=== PATIENT | male | born 1975 | race Caucasian/White ===

== ENCOUNTER 2024-01-05 23:00 | Emergency (ER) | payer OTHER, MEDICAID ==
[~2024-01-05] VITALS: Ht 182.9 cm; Wt 113.4 kg
[2024-01-05] MEDS ORDERED: VALSARTAN-HCTZ1 EA10 PO (23:09)
[2024-01-05] MEDS ORDERED: LORazepam 1 MG Tab PO ONE (23:10)
[2024-01-05 23:25] LABS: BASOPHILS ABSOLUTE AUTO 0.06 K/mm3 (0.00-0.23); BASOPHILS PERCENT AUTO 1 % (0-2); EOSINOPHILS ABSOLUTE AUTO 0.17 K/mm3 (0.00-0.68); EOSINOPHILS PERCENT AUTO 2 % (0-6); Hematocrit 42.7 % (37.0-53.0); Hemoglobin 14.2 g/dL (13.5-17.5); IMMATURE GRAN ABSOLUTE AUTO 0.03 K/mm3 (0.00-0.10); IMMATURE GRAN PERCENT AUTO 0 % (0-1); LYMPHOCYTES ABSOLUTE AUTO 1.87 K/mm3 (0.84-5.20); LYMPHOCYTES PERCENT AUTO 26 % (21-46); MONOCYTES ABSOLUTE AUTO 0.56 K/mm3 (0.16-1.47); MONOCYTES PERCENT AUTO 8 % (4-13); Mean Corpuscular HGB 30.7 pg (26.0-34.0); Mean Corpuscular HGB Conc 33.3 g/dL (31.5-36.5); Mean Corpuscular Volume 92 fL (80-100); Mean Platelet Volume 8.9 fL (9.1-12.4); NEUTROPHILS ABSOLUTE AUTO 4.45 K/mm3 (1.96-9.15); NEUTROPHILS PERCENT AUTO 62 % (41-73); Platelet Count 216 K/mm3 (150-400); RDW Standard Deviation 46.8 fL (35.1-46.3); Red Blood Cell Count 4.62 M/mm3 (4.30-5.90); White Blood Cell Count 7.14 K/mm3 (4.00-11.30)
[2024-01-05 23:44] LABS: Albumin, Blood 3.7 g/dL (3.4-5.0); Bilirubin, Total 0.3 mg/dL (0.1-1.0); Bun/Creatinine Ratio 13.4 (12.0-20.0); Creatinine, Blood 0.75 mg/dL (0.60-1.20); Globulin, Blood 3.7 g/dL (2.2-4.0); Potassium, Blood 4.2 mmol/L (3.5-5.5); Total Protein, Blood 7.4 g/dL (6.4-8.2)
== END 2024-01-06 00:14 | disposition home or self-care (01) ==
LOC: ER 23:00
PROVIDERS: Emergency Medicine
DX: I10 Essential (primary) hypertension (principal); Z79.899 Other long term (current) drug therapy
CPT/HCPCS: 71045; 80053; 84484; 85025; 93005; 93010; 99284-25; A9270

== ENCOUNTER 2025-02-20 11:54 | Inpatient (IN) | payer OTHER ==
[~2025-02-20] VITALS: Ht 180.3 cm; Wt 105.4 kg
[~2025-02-20 11:54] MED LIST: CIPR500 PO; LOSARTAN-HCTZ1 EACH PO; METR500 PO; VALSARTAN-HCTZ1 EA10 PO; VSL#3 112.5B1 EACH PO
[2025-02-20 13:33] LABS: BASOPHILS ABSOLUTE AUTO 0.07 K/mm3 (0.00-0.23); BASOPHILS PERCENT AUTO 1 % (0-2); EOSINOPHILS ABSOLUTE AUTO 0.08 K/mm3 (0.00-0.68); EOSINOPHILS PERCENT AUTO 1 % (0-6); Hematocrit 42.7 % (37.0-53.0); Hemoglobin 13.9 g/dL (13.5-17.5); IMMATURE GRAN ABSOLUTE AUTO 0.07 K/mm3 (0.00-0.10); IMMATURE GRAN PERCENT AUTO 1 % (0-1); LYMPHOCYTES ABSOLUTE AUTO 0.88 K/mm3 (0.84-5.20); LYMPHOCYTES PERCENT AUTO 8 % (21-46); MONOCYTES ABSOLUTE AUTO 0.74 K/mm3 (0.16-1.47); MONOCYTES PERCENT AUTO 7 % (4-13); Mean Corpuscular HGB Conc 32.6 g/dL (31.5-36.5); Mean Corpuscular Volume 93 fL (80-100); NEUTROPHILS ABSOLUTE AUTO 9.11 K/mm3 (1.96-9.15); NEUTROPHILS PERCENT AUTO 83 % (41-73); NRBC ABSOLUTE 0.00 K/mm3 (0.00-0.02); NRBC Auto 0.0 /100 WBC (0.0-0.2); Platelet Count 242 K/mm3 (150-400); RDW Coefficient Variation 14.6 % (11.7-14.2); RDW Standard Deviation 49.0 fL (35.1-46.3)
[2025-02-20 13:55] LABS: Alanine Aminotransfer (ALT/SGP 24.0 U/L (12-78); Albumin, Blood 3.4 g/dL (3.4-5.0); Albumin/Globulin Ratio 0.9 (0.8-1.8); Anion Gap 5.0 mmol/L (3-11); Aspartate Aminotrans (AST/SGOT 16.0 U/L (12-37); Bilirubin, Total 0.4 mg/dL (0.1-1.0); Blood Urea Nitrogen 12.0 mg/dL (8-24); CO2, Blood 31.0 mmol/L (21-32); Calcium, Blood 9.2 mg/dL (8.5-10.1); Chloride, Blood 105.0 mmol/L (98-108); Creatinine, Blood 0.71 mg/dL (0.60-1.20); Globulin, Blood 3.7 g/dL (2.2-4.0); Glucose, Blood 110.0 mg/dL (70-99); Potassium, Blood 3.8 mmol/L (3.5-5.5); Sodium, Blood 137.0 mmol/L (136-145); Total Protein, Blood 7.1 g/dL (6.4-8.2)
[2025-02-20 15:13] LABS: Source, Urine Clean Catch
[2025-02-20 15:19] LABS: Bilirubin, Urine Neg (Neg); Color, Urine Yellow (P-Yellow); Glucose Qualitative, Urine Neg (Neg); Ketones, Urine Neg (Neg); Leukocyte Esterase, Urine Neg (Neg); Protein, Urine Neg (Neg); Specific Gravity, Urine 1.025 (1.003-1.022); Urobilinogen, Urine NORM (Normal)
[2025-02-20] MEDS ORDERED: NS 1,000 ML IV SCH (15:45)
[2025-02-20] MEDS ORDERED: FentaNYL Citrate 50 MCG/ML 2 ML Injection IV ONE ×2 (15:45→17:25)
[2025-02-20 15:53] LABS: White Blood Cells, Urine 0-2 /hpf (0-5)
[2025-02-20] MEDS ORDERED: MetroNIDAZOLE 500MG/NS 100 ml 100 ML IV ONE (17:35)
[2025-02-20] MEDS ORDERED: CefTRIAXone Sodium 1,000 MG in NS 100 ML IV ONE (17:35)
[2025-02-20] MEDS ORDERED: FentaNYL Citrate 50 MCG/ML 2 ML Injection IV PRN (18:10)
[2025-02-20] MEDS ORDERED: HydrALAZINE HCl 20 MG / ML 1ML Vial IV PRN (18:15)
[2025-02-20] MEDS ORDERED: Metoclopramide HCl 5MG / ML 2ML Vial IV PRN (18:15)
[2025-02-20] MEDS ORDERED: Ondansetron HCl 2 MG / ML 2ML Vial IV PRN (18:15)
[2025-02-20] MEDS ORDERED: Piperacillin/Tazobactam Sod 3.375 GM in NS 100 ML IV ONE (18:20)
[2025-02-20] MEDS ORDERED: Lactobacil 2-S.Thermo-Bifido 1 1 Cap PO SCH (21:00)
[2025-02-20 21:02] VITALS: BP 134/84
[2025-02-21 04:27] LABS: BASOPHILS ABSOLUTE AUTO 0.02 K/mm3 (0.00-0.23); BASOPHILS PERCENT AUTO 0 % (0-2); EOSINOPHILS ABSOLUTE AUTO 0.04 K/mm3 (0.00-0.68); EOSINOPHILS PERCENT AUTO 1 % (0-6); Hematocrit 37.7 % (37.0-53.0); Hemoglobin 12.4 g/dL (13.5-17.5); IMMATURE GRAN ABSOLUTE AUTO 0.02 K/mm3 (0.00-0.10); IMMATURE GRAN PERCENT AUTO 0 % (0-1); LYMPHOCYTES ABSOLUTE AUTO 0.80 K/mm3 (0.84-5.20); LYMPHOCYTES PERCENT AUTO 13 % (21-46); MONOCYTES ABSOLUTE AUTO 0.58 K/mm3 (0.16-1.47); MONOCYTES PERCENT AUTO 9 % (4-13); Mean Corpuscular HGB Conc 32.9 g/dL (31.5-36.5); Mean Corpuscular Volume 90 fL (80-100); NEUTROPHILS ABSOLUTE AUTO 4.84 K/mm3 (1.96-9.15); NEUTROPHILS PERCENT AUTO 77 % (41-73); NRBC ABSOLUTE 0.00 K/mm3 (0.00-0.02); NRBC Auto 0.0 /100 WBC (0.0-0.2); Platelet Count 176 K/mm3 (150-400); RDW Coefficient Variation 14.7 % (11.7-14.2); RDW Standard Deviation 48.9 fL (35.1-46.3)
[2025-02-21 04:45] LABS: Magnesium, Blood 1.8 mg/dL (1.6-2.4)
[2025-02-21 04:46] LABS: Alanine Aminotransfer (ALT/SGP 19.0 U/L (12-78); Albumin, Blood 2.9 g/dL (3.4-5.0); Albumin/Globulin Ratio 1.0 (0.8-1.8); Anion Gap 8.0 mmol/L (3-11); Aspartate Aminotrans (AST/SGOT 11.0 U/L (12-37); Bilirubin, Total 0.5 mg/dL (0.1-1.0); Blood Urea Nitrogen 9.0 mg/dL (8-24); CO2, Blood 28.0 mmol/L (21-32); Calcium, Blood 7.9 mg/dL (8.5-10.1); Chloride, Blood 105.0 mmol/L (98-108); Creatinine, Blood 0.69 mg/dL (0.60-1.20); Globulin, Blood 3.0 g/dL (2.2-4.0); Glucose, Blood 98.0 mg/dL (70-99); Potassium, Blood 3.6 mmol/L (3.5-5.5); Sodium, Blood 137.0 mmol/L (136-145); Total Protein, Blood 5.9 g/dL (6.4-8.2)
[2025-02-21 05:19] LABS: Prothrombin Time Results 12.0 Sec (9.7-11.5)
[2025-02-21 05:27] VITALS: BP 123/76
[2025-02-21] MEDS ORDERED: Piperacillin/Tazobactam Sod 3.375 GM in NS 100 ML IV SCH (06:00)
--- NOTE | 2025-02-21 06:15 | NUR ---
SHIFT SUMMARY PT ADMITTED ON 02/20/25 FOR ACUTE DIVERTICULITIS WITH PERFORATION. PAIN MANAGED WELL PER EMAR. A&O X4. PT FEBRILE ON ARRIVAL TO UNIT AND MEDICATED PER EMAR. PT C/O DIZZINESS. BED ALARM ON, PT EDUCATED REGARDING FALL RISK AND TO USE THE CALL LIGHT FOR ASSISTANCE. CALL LIGHT WITHIN REACH. CARE PLAN ONGOING.
[2025-02-21 08:25] VITALS: BP 118/84
[2025-02-21] MEDS ORDERED: Enoxaparin 40 MG/0.4 ML SYR SC SCH (09:00)
--- NOTE | 2025-02-21 09:08 | NUR ---
DR CLEMENS IN TO SEE PT.
--- NOTE | 2025-02-21 14:13 | NUR ---
TURNED OVER CARE TO KEELEY Min RN.
[2025-02-21 15:32] VITALS: BP 126/91
[2025-02-21 19:07] VITALS: BP 130/82
--- NOTE | 2025-02-21 19:26 | NUR ---
SHIFT SUMMARY HAD INCREASE IN PAIN AFTER HAVING CLEAR LQ LUNCH. HAS ONLY DONE SIPS SINCE. IVF & ABX SCHEDULED. IND IN ROOM.
--- NOTE | 2025-02-22 05:27 | NUR ---
NOC SUMMARY- PT PAIN MANAGED WELL. PT HAS BEEN RESTING COMFORTABLY. PT HAS BEEN VOIDING WELL. TOLERATING PO INTAKE. NO NEW ISSUES NOTED. CALL LIGHT IN REACH.
[2025-02-22 05:29] VITALS: BP 130/97
[2025-02-22 07:27] VITALS: BP 141/94
[2025-02-22] MEDS ORDERED: D5W-1/2NS KCl 20mEq 1,000 ML IV SCH (08:05)
[2025-02-22 14:09] VITALS: BP 102/64
--- NOTE | 2025-02-22 17:37 | NUR ---
SHIFT SUMMARY PT IS A/OX4. IND IN ROOM, VSS. PT IS ABLE TO MAKE NEEDS KNOWN, TOLERATING PO INTAKE. PT STATES HE IS PASSING GAS. NO ACUTE CHANGES. PT DENIES PAIN, MANAGED PER EMAR. NO N/V. CALL LIGHT IN REACH. BED IN LOWEST POSITION.
[2025-02-22] MEDS ORDERED: NS 250 ML IV PRN (18:10)
[2025-02-22 20:45] VITALS: BP 147/104
--- NOTE | 2025-02-22 21:17 | NUR ---
TRANSFER PT TRANSFER TO 340 APPROX 2114. GAVE REPORT TO BRITTA HORTON @2109 TO ASSUME CARE OF PT.
[2025-02-22 21:26] VITALS: BP 137/85
--- NOTE | 2025-02-22 21:50 | NUR ---
SURGICAL TRANSFER: REPORT RECIEVED FROM JAVIER Pak PT ARRIVED ON UNIT VIA WHEEL CHAIR AND TRANSFERED TO BED IND. PT HAS D5 1/2 NS WITH 20 MEQS POSTASSIUM CHOLORIDE RUNNING AT 125 MLS/HR AT BEDSIDE. VS TAKEN AND WEIGHT TAKEN. PT IS NON SURGICAL AND ON A CLEAR LIQUID DIET.
--- NOTE | 2025-02-23 03:49 | NUR ---
SHIFT SUMMARY: PT WAS A SURGICAL FLOOR TRANSFER. POTASSIUM CHOLORIDE WITH D5 AND HALF NS RUNNING AT BEDSIDE AT 125 MLS/HR. PT IS IND IN ROOM AND IS AOX4. PT ABLE TO MAKE NEEDS KNOWN.
[2025-02-23 05:12] VITALS: BP 112/75
[2025-02-23 05:55] LABS: Hematocrit 34.7 % (37.0-53.0); Hemoglobin 11.3 g/dL (13.5-17.5); Mean Corpuscular HGB Conc 32.6 g/dL (31.5-36.5); Mean Corpuscular Volume 90 fL (80-100); NRBC ABSOLUTE 0.00 K/mm3 (0.00-0.02); NRBC Auto 0.0 /100 WBC (0.0-0.2); Platelet Count 181 K/mm3 (150-400); RDW Coefficient Variation 14.2 % (11.7-14.2); RDW Standard Deviation 47.2 fL (35.1-46.3)
[2025-02-23 06:17] LABS: Anion Gap 5.0 mmol/L (3-11); Blood Urea Nitrogen 3.0 mg/dL (8-24); CO2, Blood 29.0 mmol/L (21-32); Calcium, Blood 8.0 mg/dL (8.5-10.1); Chloride, Blood 107.0 mmol/L (98-108); Creatinine, Blood 0.68 mg/dL (0.60-1.20); Glucose, Blood 141.0 mg/dL (70-99); Potassium, Blood 3.4 mmol/L (3.5-5.5); Sodium, Blood 138.0 mmol/L (136-145)
[2025-02-23 07:29] VITALS: BP 106/88
--- NOTE | 2025-02-23 13:22 | NUR ---
RN NOTE MR BRAVO DESCRIBES MILD LUQ ABDOMINAL PAIN, HAS DECLINED NEEDING MEDICATIONS, HEAT PAD IS HELPING. HE WAS ADVANCED TO FULL LIQUID DIET FOR LUNCH AND ATE 100% WITHOUT ANY INCREASE IN PAIN OR NAUSEA. GIVEN SARAH HOSE TO PUT ON. AMBULATING INDEPENDENTLY.
[2025-02-23 15:41] VITALS: BP 122/89
--- NOTE | 2025-02-23 17:46 | NUR ---
SHIFT SUMMARY SEE PRIOR NOTE. MR BRAVO HAS DONE WELL TODAY. MINIMAL LUQ ABDOMINAL PAIN, NO NAUSEA. TOLERATED FULL LIQUID LUNCH WELL. AMBULATED WITH HIS AROUND THE HALLS WITH STEADY GAIT. IVF/IV ABX CONTINUE. BED LOW, CALL LIGHT IN REACH.
[2025-02-23 19:52] VITALS: BP 126/86
--- NOTE | 2025-02-24 03:33 | NUR ---
SHIFT SUMMARY: PT IS IND IN ROOM AND AOX4. PT IS ABLE TO MAKE NEEDS KNOWN. MEDICATED PER EMAR. PLAN IS FOR PT TO DISCHARGE HOME. POTASSIUM RUUNING AT BEDSIDE AT 125 MLS/HR. NO ACUTE CHNAGES THIS SHIFT
[2025-02-24 05:00] VITALS: BP 131/91
[2025-02-24 07:16] VITALS: BP 133/93
[2025-02-24 09:51] LABS: Albumin, Blood 3.0 g/dL (3.4-5.0); Anion Gap 6 mmol/L (3-11); Blood Urea Nitrogen 2 mg/dL (8-24); CO2, Blood 28 mmol/L (21-32); Calcium, Blood 8.2 mg/dL (8.5-10.1); Chloride, Blood 107 mmol/L (98-108); Creatinine, Blood 0.64 mg/dL (0.60-1.20); Glucose, Blood 171 mg/dL (70-99); Phosphorus, Blood 3.3 mg/dL (2.5-4.9); Potassium, Blood 4.0 mmol/L (3.5-5.5); Sodium, Blood 137 mmol/L (136-145)
[2025-02-24] MEDS ORDERED: DOCU100 PO (12:32)
[2025-02-24] MEDS ORDERED: AMOCLA875 PO (12:32)
[2025-02-24] MEDS ORDERED: HYDR1TAB94 PO (12:34)
== END 2025-02-24 13:32 | disposition home or self-care (01) | DRG 392 ==
LOC: ER 11:54 → MEDS 18:10 → SURS 18:10 → MEDS 02-22 21:30 → ENPENDDIS 02-24 12:19 → MEDS 02-24 13:32
PROVIDERS: Internal Medicine; Nurse Practitioner Acute Care; Student in an Organized Health Care Education/Training Program; ADMIT Student in an Organized Health Care Education/Training Program
DX: K57.20 Diverticulitis of large intestine with perforation and abscess without bleeding (principal); I10 Essential (primary) hypertension; M54.9 Dorsalgia, unspecified; G89.29 Other chronic pain; E87.6 Hypokalemia; R14.3 Flatulence; F17.210 Nicotine dependence, cigarettes, uncomplicated; F12.90 Cannabis use, unspecified, uncomplicated; Z90.89 Acquired absence of other organs; Z79.899 Other long term (current) drug therapy
CPT/HCPCS: 36415; 74177; 80048; 80053; 80069; 81001; 83690; 83735; 83880; 85025; 85027; 85610; 87040; 87086; 93005; 93010; 96374-59; 99285-25; A9270; J0696; J1650; J2543; J2765; J3010; J7030; J7050; J7120; Q9967

== ENCOUNTER 2025-03-02 00:48 | Inpatient (IN) | payer OTHER ==
[~2025-03-02] VITALS: Ht 180.3 cm; Wt 104.3 kg
[~2025-03-02 00:48] MED LIST changes: +AMOCLA875 PO; +DOCU100 PO; +HYDR1TAB94 PO
[2025-03-02] MEDS ORDERED: FentaNYL Citrate 50 MCG/ML 2 ML Injection IV PRN (03:25)
[2025-03-02 03:38] LABS: BASOPHILS ABSOLUTE AUTO 0.03 K/mm3 (0.00-0.23); BASOPHILS PERCENT AUTO 0 % (0-2); EOSINOPHILS ABSOLUTE AUTO 0.08 K/mm3 (0.00-0.68); EOSINOPHILS PERCENT AUTO 1 % (0-6); Hematocrit 39.8 % (37.0-53.0); Hemoglobin 13.0 g/dL (13.5-17.5); IMMATURE GRAN ABSOLUTE AUTO 0.05 K/mm3 (0.00-0.10); IMMATURE GRAN PERCENT AUTO 1 % (0-1); LYMPHOCYTES ABSOLUTE AUTO 1.19 K/mm3 (0.84-5.20); LYMPHOCYTES PERCENT AUTO 12 % (21-46); MONOCYTES ABSOLUTE AUTO 0.49 K/mm3 (0.16-1.47); MONOCYTES PERCENT AUTO 5 % (4-13); Mean Corpuscular HGB Conc 32.7 g/dL (31.5-36.5); Mean Corpuscular Volume 90 fL (80-100); NEUTROPHILS ABSOLUTE AUTO 8.29 K/mm3 (1.96-9.15); NEUTROPHILS PERCENT AUTO 82 % (41-73); NRBC ABSOLUTE 0.00 K/mm3 (0.00-0.02); NRBC Auto 0.0 /100 WBC (0.0-0.2); Platelet Count 255 K/mm3 (150-400); RDW Coefficient Variation 14.2 % (11.7-14.2); RDW Standard Deviation 46.5 fL (35.1-46.3)
[2025-03-02 03:57] LABS: Alanine Aminotransfer (ALT/SGP 19.0 U/L (12-78); Albumin, Blood 3.2 g/dL (3.4-5.0); Albumin/Globulin Ratio 1.0 (0.8-1.8); Anion Gap 9.0 mmol/L (3-11); Aspartate Aminotrans (AST/SGOT 10.0 U/L (12-37); Bilirubin, Total 0.4 mg/dL (0.1-1.0); Blood Urea Nitrogen 12.0 mg/dL (8-24); CO2, Blood 29.0 mmol/L (21-32); Calcium, Blood 8.4 mg/dL (8.5-10.1); Chloride, Blood 102.0 mmol/L (98-108); Creatinine, Blood 0.71 mg/dL (0.60-1.20); Globulin, Blood 3.2 g/dL (2.2-4.0); Glucose, Blood 114.0 mg/dL (70-99); Potassium, Blood 3.6 mmol/L (3.5-5.5); Sodium, Blood 136.0 mmol/L (136-145); Total Protein, Blood 6.4 g/dL (6.4-8.2)
[2025-03-02] MEDS ORDERED: Ampicillin Sod/Sulbactam Sod 3 GM in NS 100 ML IV ONE (05:40)
[2025-03-02] MEDS ORDERED: NS 1,000 ML IV SCH ×3 (05:40→11:30)
[2025-03-02] MEDS ORDERED: Ondansetron HCl 2 MG / ML 2ML Vial IV PRN (05:45)
[2025-03-02] MEDS ORDERED: HYDROmorphone HCl/Pf 1MG SYR IV PRN (05:45)
[2025-03-02] MEDS ORDERED: FLU VACC TS2025-26(6MOS UP)/PF 45 MCG/0.5 ML SYRINGE IM ONE (05:50)
[2025-03-02] MEDS ORDERED: Losartan/HCTZ 50-12.5 TAB PO SCH ×2 (09:00)
[2025-03-02] MEDS ORDERED: Lactobacil 2-S.Thermo-Bifido 1 1 Cap PO SCH (09:00)
[2025-03-02 11:11] VITALS: BP 124/92
[2025-03-02] MEDS ORDERED: Piperacillin/Tazobactam Sod 3.375 GM in NS 100 ML IV SCH (12:00)
[2025-03-02 14:32] VITALS: BP 120/85
--- NOTE | 2025-03-02 17:19 | NUR ---
DISCHARGE PATIENT IS AOX4, IND IN ROOM. TOLERATING SIPS OF CL. MEDICATED FOR PAIN. ON IVF AND ABX Q6. PASSING FLATUS AND VOIDING WELL. ABLE TO MAKE NEEDS KNOWN. PLAN FOR IVF AND ABX. CALL LIGHT IN REACH.
[2025-03-02 17:38] LABS: Source, Urine Voided
[2025-03-02 17:54] LABS: Bilirubin, Urine Neg (Neg); Color, Urine Yellow (P-Yellow); Glucose Qualitative, Urine Neg (Neg); Ketones, Urine Neg (Neg); Leukocyte Esterase, Urine Neg (Neg); Protein, Urine 1+ (Neg); Specific Gravity, Urine 1.025 (1.003-1.022); Urobilinogen, Urine NORM (Normal)
[2025-03-02 18:10] LABS: White Blood Cells, Urine 0-2 /hpf (0-5)
[2025-03-02 20:06] VITALS: BP 126/87
[2025-03-03 05:31] VITALS: BP 121/78
--- NOTE | 2025-03-03 05:32 | NUR ---
SHIFT SUMMARY DIMITRIS WAS ALERT AND FULLY ORIENTED ON ASSESSMENT. PT PAIN WELL MANAGED. PT DENIES N/V, CHEST PAIN, OR SOB. PT IND IN ROOM. NO ACUTE EVENTS OR NOTED CHANGES TO CONDITION TONGIHT. PT SLEPT WELL T/O SHIFT.
[2025-03-03 07:31] VITALS: BP 103/74
[2025-03-03 15:47] VITALS: BP 134/95
--- NOTE | 2025-03-03 18:07 | NUR ---
SHIFT SUMMARY PATIENT IS AOX4, CONTINUES IV ABX, IVF. PATIENT IS TOELRATING FULL LIQUIDS. PASSING FLATUS, SMALL BM. MEDICATED FOR PAIN. WALKING HALLS, AND SHOWER TODAY. VSS, CALL LIGHT IN REACH.
[2025-03-03 19:47] VITALS: BP 127/94
[2025-03-04 04:29] VITALS: BP 129/83
--- NOTE | 2025-03-04 04:44 | NUR ---
SHIFT SUMMARY DIMITRIS WAS ALERT AND FULLY ORIENTED ON ASSESSMENT. PAIN WELL MANAGED. PT IND. REPORTING BMS. NO ACUTE EVENTS TONIGHT, NO CHANGES TO PT CONDITION. PT DENIES SOB OR CHEST PAIN, NO NAUSEA. PT RESTING.
[2025-03-04 04:59] LABS: BASOPHILS ABSOLUTE AUTO 0.04 K/mm3 (0.00-0.23); BASOPHILS PERCENT AUTO 1 % (0-2); EOSINOPHILS ABSOLUTE AUTO 0.17 K/mm3 (0.00-0.68); EOSINOPHILS PERCENT AUTO 3 % (0-6); Hematocrit 34.3 % (37.0-53.0); Hemoglobin 11.3 g/dL (13.5-17.5); IMMATURE GRAN ABSOLUTE AUTO 0.02 K/mm3 (0.00-0.10); IMMATURE GRAN PERCENT AUTO 0 % (0-1); LYMPHOCYTES ABSOLUTE AUTO 1.46 K/mm3 (0.84-5.20); LYMPHOCYTES PERCENT AUTO 25 % (21-46); MONOCYTES ABSOLUTE AUTO 0.54 K/mm3 (0.16-1.47); MONOCYTES PERCENT AUTO 9 % (4-13); Mean Corpuscular HGB Conc 32.9 g/dL (31.5-36.5); Mean Corpuscular Volume 89 fL (80-100); NEUTROPHILS ABSOLUTE AUTO 3.52 K/mm3 (1.96-9.15); NEUTROPHILS PERCENT AUTO 61 % (41-73); NRBC ABSOLUTE 0.00 K/mm3 (0.00-0.02); NRBC Auto 0.0 /100 WBC (0.0-0.2); Platelet Count 188 K/mm3 (150-400); RDW Coefficient Variation 13.9 % (11.7-14.2); RDW Standard Deviation 45.2 fL (35.1-46.3)
[2025-03-04 05:31] LABS: Alanine Aminotransfer (ALT/SGP 15.0 U/L (12-78); Albumin, Blood 2.6 g/dL (3.4-5.0); Albumin/Globulin Ratio 0.8 (0.8-1.8); Anion Gap 7.0 mmol/L (3-11); Aspartate Aminotrans (AST/SGOT 9.0 U/L (12-37); Bilirubin, Total 0.4 mg/dL (0.1-1.0); Blood Urea Nitrogen 5.0 mg/dL (8-24); CO2, Blood 27.0 mmol/L (21-32); Calcium, Blood 8.0 mg/dL (8.5-10.1); Chloride, Blood 108.0 mmol/L (98-108); Creatinine, Blood 0.69 mg/dL (0.60-1.20); Globulin, Blood 3.2 g/dL (2.2-4.0); Glucose, Blood 86.0 mg/dL (70-99); Potassium, Blood 3.5 mmol/L (3.5-5.5); Sodium, Blood 138.0 mmol/L (136-145); Total Protein, Blood 5.8 g/dL (6.4-8.2)
[2025-03-04 07:18] VITALS: BP 109/69
[2025-03-04 15:47] VITALS: BP 131/90
[2025-03-04 22:47] VITALS: BP 107/65
[2025-03-05 04:41] VITALS: BP 130/90
--- NOTE | 2025-03-05 06:10 | NUR ---
SHIFT SUMMARY NOC. PT ADMIT FOR ACUTE DIVERTIC. PT A/O X4, AMBULATES INDEPENDENTLY. PT VOIDING URINE AND HAD A REPORTED MEDIUM LOOSE BM THIS SHIFT. PT MEDICATED FOR ABDOMINAL PAIN WITH REPORTED RELIEF OF SX. PT TOLERATING PO INTAKE WITHOUT N/V. PT MAKES NEEDS KNOWN, CALL LIGHT IN REACH.
[2025-03-05 07:26] VITALS: BP 137/85
[2025-03-05 15:08] VITALS: BP 139/102
[2025-03-05 15:09] VITALS: BP 136/86
--- NOTE | 2025-03-05 17:51 | NUR ---
PATIENT IS ALERT AND ORIENTED AND COOPERATIVE WITH CARE. PATIENT C/O ABDOMINAL PAIN, MEDICATED PER EMAR. PATIENT HAS TOLERATED HIS DIET WELL TODAY. HIS WAS AT THE BEDSIDE THIS MORNING. INDEPENDENT IN HIS ROOM. CALLS APPROPRIATLY. ON RA. WILL CONTINUE TO MONITOR
[2025-03-05 19:14] VITALS: BP 126/88
--- NOTE | 2025-03-06 04:38 | NUR ---
SHIFT SUMMARY NOC. PT ADMIT FOR ACUTE DIVERTIC. IV ABX PER EMAR. PT A/O X4, AMBULATES WELL INDEPENDENTLY. PT VOIDING URINE AND HAVING BMS. PT MEDICATED FOR PAIN WITH REPORTED RELIEF OF SX. PT DENIES N/V AND TOLERATING DIET ORDERED. PT REPORTED HIS MOTHER YESTERDAY ON 03/05/25, SUPPORT PROVIDED. PT MAKES NEEDS KNOWN, CALL LIGHT IN REACH.
[2025-03-06 05:42] VITALS: BP 134/97
[2025-03-06 07:13] VITALS: BP 113/76
[2025-03-06] MEDS ORDERED: CIPR500 PO (10:06)
[2025-03-06] MEDS ORDERED: METR500 PO (10:08)
--- NOTE | 2025-03-06 10:50 | NUR ---
SUMMARY ASSUMED CARE OF PT @0700. AXO4 - VSS - IND. REPORTING 06/24 ABD PAIN. TOLERATING PO INTAKE WELL. TOILETING WELL. DENYING N/V. PT REQUESTIG TO DC IF MEDICALLY STABLE. DR GRACE ASSESSED PT / DR DEJESUS ASSESSED PT - BOTH DEEMED PT OK TO DC. ORDERS RECEIVED - INSTRUCTIONS PROVIDED ALONG WITH 2 WRITTEN PRESCRIPTIONS FOR ABX. PT W/ ALL BELONGINGS. SPOUSE AND PT WALKED OUT OF ROOM AND DC'D @9811.
== END 2025-03-06 10:53 | disposition home or self-care (01) | DRG 392 ==
LOC: ER 00:48 → ERHOLD 00:49 → SURS 00:49
PROVIDERS: Emergency Medicine; Surgery; ADMIT Student in an Organized Health Care Education/Training Program
DX: K57.20 Diverticulitis of large intestine with perforation and abscess without bleeding (principal); I10 Essential (primary) hypertension; M54.9 Dorsalgia, unspecified; G89.29 Other chronic pain; M79.7 Fibromyalgia; Z90.89 Acquired absence of other organs; F17.210 Nicotine dependence, cigarettes, uncomplicated; Z79.899 Other long term (current) drug therapy; E86.0 Dehydration
CPT/HCPCS: 36415; 74177; 80053; 81001; 83605; 83690; 85025; 87040; 87086; 96374-59; 96375; 99285-25; A9270; G0378; J0295; J1171; J2543; J3010; J7030; Q9967

== ENCOUNTER 2025-03-16 10:46 | Inpatient (IN) | payer OTHER ==
[~2025-03-16] VITALS: Ht 180.3 cm; Wt 94.1 kg
[2025-03-16] MEDS ORDERED: NS 1,000 ML IV SCH ×2 (11:10→15:00)
[2025-03-16] MEDS ORDERED: HYDROmorphone HCl/Pf 1MG SYR IV ONE (11:10)
[2025-03-16 11:50] LABS: BASOPHILS ABSOLUTE AUTO 0.05 K/mm3 (0.00-0.23); BASOPHILS PERCENT AUTO 1 % (0-2); EOSINOPHILS ABSOLUTE AUTO 0.14 K/mm3 (0.00-0.68); EOSINOPHILS PERCENT AUTO 2 % (0-6); Hematocrit 44.0 % (37.0-53.0); Hemoglobin 14.4 g/dL (13.5-17.5); IMMATURE GRAN ABSOLUTE AUTO 0.03 K/mm3 (0.00-0.10); IMMATURE GRAN PERCENT AUTO 0 % (0-1); LYMPHOCYTES ABSOLUTE AUTO 1.36 K/mm3 (0.84-5.20); LYMPHOCYTES PERCENT AUTO 19 % (21-46); MONOCYTES ABSOLUTE AUTO 0.37 K/mm3 (0.16-1.47); MONOCYTES PERCENT AUTO 5 % (4-13); Mean Corpuscular HGB Conc 32.7 g/dL (31.5-36.5); Mean Corpuscular Volume 88 fL (80-100); NEUTROPHILS ABSOLUTE AUTO 5.26 K/mm3 (1.96-9.15); NEUTROPHILS PERCENT AUTO 73 % (41-73); NRBC ABSOLUTE 0.00 K/mm3 (0.00-0.02); NRBC Auto 0.0 /100 WBC (0.0-0.2); Platelet Count 323 K/mm3 (150-400); RDW Coefficient Variation 14.1 % (11.7-14.2); RDW Standard Deviation 45.3 fL (35.1-46.3)
[2025-03-16] MEDS ORDERED: AMOX-CLAV 875-1 EAC5 (11:52)
[2025-03-16 12:16] LABS: Alanine Aminotransfer (ALT/SGP 20.0 U/L (12-78); Albumin, Blood 3.5 g/dL (3.4-5.0); Albumin/Globulin Ratio 0.8 (0.8-1.8); Anion Gap 8.0 mmol/L (3-11); Aspartate Aminotrans (AST/SGOT 15.0 U/L (12-37); Bilirubin, Total 0.4 mg/dL (0.1-1.0); Blood Urea Nitrogen 6.0 mg/dL (8-24); CO2, Blood 27.0 mmol/L (21-32); Calcium, Blood 9.3 mg/dL (8.5-10.1); Chloride, Blood 105.0 mmol/L (98-108); Creatinine, Blood 0.61 mg/dL (0.60-1.20); Globulin, Blood 4.2 g/dL (2.2-4.0); Glucose, Blood 117.0 mg/dL (70-99); Potassium, Blood 3.7 mmol/L (3.5-5.5); Sodium, Blood 136.0 mmol/L (136-145); Total Protein, Blood 7.7 g/dL (6.4-8.2)
[2025-03-16 13:20] LABS: Bilirubin, Urine Neg (Neg); Color, Urine Yellow (P-Yellow); Glucose Qualitative, Urine Neg (Neg); Ketones, Urine Neg (Neg); Leukocyte Esterase, Urine 1+ (Neg); Protein, Urine Neg (Neg); Source, Urine Clean Catch; Specific Gravity, Urine 1.015 (1.003-1.022); Urobilinogen, Urine NORM (Normal)
[2025-03-16] MEDS ORDERED: FLU VACC TS2025-26(6MOS UP)/PF 45 MCG/0.5 ML SYRINGE IM SCH (14:35)
[2025-03-16] MEDS ORDERED: Ondansetron HCl 2 MG / ML 2ML Vial IV PRN (14:35)
[2025-03-16] MEDS ORDERED: HYDROmorphone HCl/Pf 1MG SYR IV PRN (14:35)
[2025-03-16 18:15] VITALS: BP 137/91
[2025-03-16] MEDS ORDERED: HYDR1TAB94 PO (18:25)
[2025-03-16] MEDS ORDERED: MIRALAX17 GM PO (18:26)
[2025-03-16 20:26] VITALS: BP 128/81
[2025-03-17 04:25] VITALS: BP 111/74
[2025-03-17 05:32] LABS: BASOPHILS ABSOLUTE AUTO 0.04 K/mm3 (0.00-0.23); BASOPHILS PERCENT AUTO 1 % (0-2); EOSINOPHILS ABSOLUTE AUTO 0.14 K/mm3 (0.00-0.68); EOSINOPHILS PERCENT AUTO 2 % (0-6); Hematocrit 38.5 % (37.0-53.0); Hemoglobin 12.4 g/dL (13.5-17.5); IMMATURE GRAN ABSOLUTE AUTO 0.03 K/mm3 (0.00-0.10); IMMATURE GRAN PERCENT AUTO 1 % (0-1); LYMPHOCYTES ABSOLUTE AUTO 1.37 K/mm3 (0.84-5.20); LYMPHOCYTES PERCENT AUTO 23 % (21-46); MONOCYTES ABSOLUTE AUTO 0.59 K/mm3 (0.16-1.47); MONOCYTES PERCENT AUTO 10 % (4-13); Mean Corpuscular HGB Conc 32.2 g/dL (31.5-36.5); Mean Corpuscular Volume 90 fL (80-100); NEUTROPHILS ABSOLUTE AUTO 3.81 K/mm3 (1.96-9.15); NEUTROPHILS PERCENT AUTO 64 % (41-73); NRBC ABSOLUTE 0.00 K/mm3 (0.00-0.02); NRBC Auto 0.0 /100 WBC (0.0-0.2); Platelet Count 228 K/mm3 (150-400); RDW Coefficient Variation 14.2 % (11.7-14.2); RDW Standard Deviation 46.5 fL (35.1-46.3)
[2025-03-17 05:57] LABS: Anion Gap 5.0 mmol/L (3-11); Blood Urea Nitrogen 7.0 mg/dL (8-24); CO2, Blood 29.0 mmol/L (21-32); Calcium, Blood 8.5 mg/dL (8.5-10.1); Chloride, Blood 106.0 mmol/L (98-108); Creatinine, Blood 0.66 mg/dL (0.60-1.20); Glucose, Blood 83.0 mg/dL (70-99); Potassium, Blood 3.8 mmol/L (3.5-5.5); Sodium, Blood 136.0 mmol/L (136-145)
--- NOTE | 2025-03-17 06:04 | NUR ---
SHIFT SUMMARY PT REMAINS NPO WITH IVF AND IV ANTIBIOTICS INFUSING PER ORDER. PT MEDICATED FOR RLQ PAIN WITH DILAUDID PER EMAR. PT DENIES BM DURING THE NIGHT, BUT IS PASSING FLATUS. PT DENIES NAUSEA. PT UP INDEPENDENTLY IN ROOM. PT SLEPT INTERMITTENTLY DURING THE NIGHT.
[2025-03-17 07:29] VITALS: BP 101/63
[2025-03-17 15:24] VITALS: BP 162/105
--- NOTE | 2025-03-17 17:36 | NUR ---
SHIFT SUMMARY/DISCHARGE 1730 PT AOX4, COOPERATIVE, ABLE TO MAKE NEEDS KNOWN. PT IS IND IN ROOM, RUNNING NS MOST OF DAY. TOLERATING MEDICATIONS. C/O OF ABD PAIN, HX OF DIVERTICULITIS. IV DC'D BY THIS RN WITHOUT EVENT. HARD SCRIPT WENT WITH PT. PT OPTED TO AMBULATE OUT OF HOSPITAL INSTEAD OF UTILIZING WC. WENT OVER DC PAPERWORK WITH PT AND FAMILY MEMBER. PT LEFT WITH PERSONAL BELONGINGS.
[2025-03-22] MEDS ORDERED: METR500 PO (08:36)
[2025-03-22] MEDS ORDERED: Norco 5-325 Ta1 EACH PO (16:58)
== END 2025-03-17 17:38 | disposition home or self-care (01) | DRG 392 ==
LOC: ER 10:46 → MEDS 14:32 → SURS 14:32 → MEDS 14:32
PROVIDERS: Emergency Medicine; ADMIT Student in an Organized Health Care Education/Training Program
DX: K57.20 Diverticulitis of large intestine with perforation and abscess without bleeding (principal); I10 Essential (primary) hypertension; G89.29 Other chronic pain; M54.9 Dorsalgia, unspecified; M79.7 Fibromyalgia; Z79.891 Long term (current) use of opiate analgesic; F17.210 Nicotine dependence, cigarettes, uncomplicated
CPT/HCPCS: 36415; 74177; 80048; 80053; 81001; 83690; 85025; 87086; 96365; 96375; 99285-25; A9270; J1171; J2185; J7030; Q9967

== ENCOUNTER 2025-03-23 09:35 | Day surgery (SDC) | payer OTHER ==
[2025-03-23] VITALS (24 sets, daily range): BP systolic 101–145; BP diastolic 73–101
[~2025-03-23] VITALS: Ht 180.3 cm; Wt 99.0 kg
[~2025-03-23 09:35] MED LIST changes: +AMOX-CLAV 875-1 EAC5; +MIRALAX17 GM PO; +Norco 5-325 Ta1 EACH PO
--- NOTE | 2025-03-23 10:15 | NUR ---
Ambulatory in Day Surgery. History, Chart, Medications and Allergies reviewed before start of procedure. Lungs clear T/O to Auscultation. Patient confirms NPO status and agrees with scheduled surgery. Pre-Op teaching done. Pt verbalizes understanding. Patient States Post-Procedure ride home has been arranged.
--- NOTE | 2025-03-23 10:54 | NUR ---
03/23/25 1054 Joyce Torres CONFIRMED AND REVIEWED H&P, MEDCICATIONS, ALLERGIES, MEDICAL HISTORY, RESPIRATORY HISTORY, VITAL SIGNS, 3-LEAD EKG, CONSENTS, AND PHYSICIAN ORDERS. PATIENT CONFIRMS NPO STATUS AND AGREES WITH SCHEDULED PROCEDURE. MONITOR INTACT WITH CONTINUOUS PULSE OXIMETRY, CAPNOGRAPHY, 3-LEAD EKG, INTERMITTENT BP. SUPPLEMENTAL O2 TO BE TITRATED THROUGHOUT PROCEDURE TO MAINTAIN O2 SATURATION ABOVE 90%. PATIENT DETERMINED TO BE ASA APPROPRIATE FOR PROPOFOL SEDATION PRIOR TO START OF PROCEDURE BY DR. RM.
--- NOTE | 2025-03-23 12:04 | NUR ---
Discharge instructions reviewed with patient. Patient verbalizes understanding. Copy given to patient to take home. Patient States Post-Procedure ride home has been arranged. PATIENT TOLERATING PO FLUIDS, DENIES PAIN. VSS BACK TO BASELINE.
== END 2025-03-23 23:00 | disposition home or self-care (01) ==
LOC: ORSCMMR 09:35 → ORD 10:45 → ORSCMMR 23:00
PROVIDERS: Surgery
PROC: 0DBN8ZX Excision of Sigmoid Colon, Via Natural or Artificial Opening Endoscopic, Diagnostic (ICD-10-PCS; principal; 2025-03-23 10:45)
PROC: 0DBP8ZX Excision of Rectum, Via Natural or Artificial Opening Endoscopic, Diagnostic (ICD-10-PCS; principal; 2025-03-23 10:45)
PROC: 0DBL8ZX Excision of Transverse Colon, Via Natural or Artificial Opening Endoscopic, Diagnostic (ICD-10-PCS; principal; 2025-03-23 10:45)
DX: K57.20 Diverticulitis of large intestine with perforation and abscess without bleeding (principal); K57.91 Diverticulosis of intestine, part unspecified, without perforation or abscess with bleeding; D12.8 Benign neoplasm of rectum; K63.5 Polyp of colon; I10 Essential (primary) hypertension; F17.210 Nicotine dependence, cigarettes, uncomplicated; M79.7 Fibromyalgia; Z79.899 Other long term (current) drug therapy
CPT/HCPCS: 88305; J2704; J7120

== ENCOUNTER 2025-03-24 11:29 | Inpatient (IN) | payer OTHER ==
[~2025-03-24] VITALS: Ht 180.3 cm; Wt 100.0 kg
[2025-03-24] VITALS (15 sets, daily range): BP systolic 113–144; BP diastolic 66–95
--- NOTE | 2025-03-24 12:52 | NUR ---
Pre-Op teaching done. Pt verbalizes understanding. Ambulatory in SURGICAL FLOOR. PRIOR SURGERY RUNNING LONG, GOT PATIENT READY ON SURGICAL FLOOR IN PATIENT ROOM. History, Chart, Medications and Allergies reviewed before start of procedure. Patient confirms NPO status and agrees with scheduled surgery.
[2025-03-24] MEDS ORDERED: FentaNYL Citrate 50 MCG/ML 2 ML Injection ONE ×2 (14:06→19:15)
[2025-03-24] MEDS ORDERED: Bupivacaine 0.5% W/EPI 1:200000 SDV 30 ML Vial ONE (16:24)
[2025-03-24] MEDS ORDERED: CeFAZolin Sodium 2,000 MG in NS 100 ML IV SCH (17:00)
[2025-03-24] MEDS ORDERED: Heparin Sodium,Porcine 5,000 UNIT/0.5 ML SDV SC ONE (17:00)
[2025-03-24] MEDS ORDERED: Midazolam HCl 1MG / ML 2ML Vial IV ONE (17:10)
[2025-03-24] MEDS ORDERED: MetroNIDAZOLE 500MG/NS 100 ml 100 ML IV SCH (17:30)
[2025-03-24] MEDS ORDERED: Bupivacaine 0.25% Epi 1:200000 30 ML Vial ONE (20:03)
[2025-03-24] MEDS ORDERED: Ketorolac Tromethamine 30mg Vial ONE (21:23)
[2025-03-24] MEDS ORDERED: Dexamethasone Sod Phos 10 MG/ML 1ML VIAL ONE (21:23)
[2025-03-24] MEDS ORDERED: Ondansetron HCl 2 MG / ML 2ML Vial ONE (21:23)
[2025-03-24] MEDS ORDERED: Rocuronium Bromide 10 MG/ML 5ML Injection IV ONE (21:23)
[2025-03-24] MEDS ORDERED: Sugammadex Sodium 200 MG/2ML SDV (100 MG/ML) ONE (21:24)
[2025-03-24] MEDS ORDERED: HYDROmorphone HCl/Pf 1MG SYR IV PRN ×3 (21:30→21:55)
[2025-03-24] MEDS ORDERED: FentaNYL Citrate 50 MCG/ML 2 ML Injection IV PRN ×2 (21:30)
[2025-03-24] MEDS ORDERED: Albuterol 2.5 MG/3 ML VIAL INH PRN (21:30)
[2025-03-24] MEDS ORDERED: Metoclopramide HCl 5MG / ML 2ML Vial IV PRN (21:35)
[2025-03-24] MEDS ORDERED: Ondansetron HCl 2 MG / ML 2ML Vial IV PRN ×2 (21:35→22:00)
[2025-03-24] MEDS ORDERED: FLU VACC TS2025-26(6MOS UP)/PF 45 MCG/0.5 ML SYRINGE IM SCH (21:55)
--- NOTE | 2025-03-24 23:18 | NUR ---
ARRIVAL TO SRG UNIT PT ARRIVED TO SURGICAL UNIT APPROX 2250 VIA BED. S/P LAP SIGMOID COLECTOMY W/SB RESECTION & ILEOSTOMY. 4 SM LAP SITES NOTED TO UPPER ABD W/SKIN ADHESIVE. APPROX 2INCH MIDLINE INCISION NOTED ALSO W/SKIN ADHESIVE. ILEOSTOMY IN PLACE, NO OUTPUT IN BAG AT THIS TIME. PT DENIES N/V. REPORTS 4/10 GENERAL ABD PAIN. ORIENTED TO & CALL LIGHT.
[2025-03-25] VITALS (7 sets, daily range): BP systolic 127–147; BP diastolic 86–98
[2025-03-25 05:10] LABS: Hematocrit 38.9 % (37.0-53.0); Hemoglobin 13.0 g/dL (13.5-17.5); Mean Corpuscular HGB Conc 33.4 g/dL (31.5-36.5); Mean Corpuscular Volume 88 fL (80-100); NRBC ABSOLUTE 0.00 K/mm3 (0.00-0.02); NRBC Auto 0.0 /100 WBC (0.0-0.2); Platelet Count 242 K/mm3 (150-400); RDW Coefficient Variation 13.6 % (11.7-14.2); RDW Standard Deviation 43.9 fL (35.1-46.3)
[2025-03-25 05:32] LABS: Anion Gap 9.0 mmol/L (3-11); Blood Urea Nitrogen 11.0 mg/dL (8-24); CO2, Blood 28.0 mmol/L (21-32); Calcium, Blood 9.1 mg/dL (8.5-10.1); Chloride, Blood 104.0 mmol/L (98-108); Creatinine, Blood 0.57 mg/dL (0.60-1.20); Glucose, Blood 131.0 mg/dL (70-99); Magnesium, Blood 1.8 mg/dL (1.6-2.4); Potassium, Blood 4.2 mmol/L (3.5-5.5); Sodium, Blood 137.0 mmol/L (136-145)
--- NOTE | 2025-03-25 07:53 | NUR ---
SHIFT SUMMARY AOX4. POD 1-LAP COLECTOMY & BOWEL RESECTION W/ILEOSTOMY. x4 LAP SITES C/D/I. MIDLINE INCISION C/D/I. NO DRAINAGE NOTED TO INCISIONS. ILEOSOTMY W/O ANY FLATUS OR OUTPUT THIS SHIFT. TOLERATING SIPS WATER. DENIES N/V. HYPOACTIVE BT. BLEDSOE CATH IN PLACE & DRAINING ORANGE URINE TO GRAVITY. REPORTS 5-12/22 ABD PAIN, MEDICATED w/5MG PO OXYCODONE 2x & 1x W/0.5MG IV DILAUDID. PT ABLE TO REST SOUNDLY W/EYES CLOSED FOR A FEW HOURS. CALL LIGHT IN REACH.
[2025-03-25] MEDS ORDERED: Losartan/HCTZ 50-12.5 TAB PO SCH (09:00)
[2025-03-25] MEDS ORDERED: Enoxaparin 40 MG/0.4 ML SYR SC SCH (09:00)
--- NOTE | 2025-03-25 14:45 | NUR ---
ASSUMED CARE OF PT. A/O X 4 MINIMAL PAIN TO ABD SITES ARE CDI NO BM YET, PT ENC TO COUGH AND DEEP BREATH YOU ENC BETTER RESPIRATIONS. 0900 BLEDSOE CATH WAS REMOVED WITHOUT ANY COMPLAINTS PT ASSISTED OUT OF BED AND WAS ABLE TO TRANSFER WITH MINIMAL ASSIST.
--- NOTE | 2025-03-25 14:53 | NUR ---
POST BLEDSOE URINATE PT HAS NO ISSUES USING BATHROOM, URINATION >300 NO S/S OF BLEEDING, NO DIFFICULTY OR PAIN
--- NOTE | 2025-03-25 18:29 | NUR ---
ILEOSTOMY FUNCTION PT HAS NOT HAD ANY ISSUES WITH N/V, PT HAS BEEN FLAKO CLR LIQ. ILEOSTOMY DRAINING WELL DARK BROWN LIQUID. PT MEDICATED FOR ABD PAIN PER AUG.
[2025-03-26 04:19] VITALS: BP 150/97
--- NOTE | 2025-03-26 05:25 | NUR ---
NOC SUMMARY- PT PAIN MANGED OK. PT STATES PAIN MEDS DON'T LAST LONG ENOUGH. PT MAY BENEFIT FROM EXTENDED RELASE PAIN MED. PT VOIDING. SOME GREEN LIQUID STOOL IN OSTOMY. PT DRESSINGS C/D/I. PT REPORTED SOME HEARTBURN AND WOULD LIKE TUMS ADDED TO EMAR. CALL LIGHT IN REACH.
[2025-03-26 07:58] VITALS: BP 135/100
[2025-03-26] MEDS ORDERED: HYDROmorphone HCl/Pf 1MG SYR IV PRN (09:25)
[2025-03-26 15:39] VITALS: BP 138/97
--- NOTE | 2025-03-26 17:00 | NUR ---
SUMMARY PT ABD HAS BEEN DISTENDED AND FIRM T/O SHIFT. HAD SMALL AMOUNT RED DRAINAGE FROM OSTOMY. SAT UP IN CHAIR FOR AWHILE MIDSHIFT. HAS BEEN TIRED T/O DAY, REPORTED DID NOT SLEEP WELL T/O NIGHT. DR CLEMENS ADVISED PT TO TAKE CLEAR LIQUIDS VERY SLOW UNTIL LESS DISTENDED/FIRM. PT PLEASANT AND COOPERATIVE. CALL LIGHT IN REACH.
--- NOTE | 2025-03-26 17:36 | NUR ---
PT WOKE FROM NAP FEELING NAUSEATED AND MORE BLOATED. BURPING FREQUENTLY. MEDICATED PER ORDERS FOR NAUSEA. SITTING UP IN BED W/EMESIS BAG. ENCOURAGED PT TO AMBULATE ONCE NAUSEA SUBSIDES SOME.
[2025-03-26 19:17] VITALS: BP 138/97
[2025-03-27 04:12] LABS: BASOPHILS ABSOLUTE AUTO 0.05 K/mm3 (0.00-0.23); BASOPHILS PERCENT AUTO 1 % (0-2); EOSINOPHILS ABSOLUTE AUTO 0.21 K/mm3 (0.00-0.68); EOSINOPHILS PERCENT AUTO 2 % (0-6); Hematocrit 39.7 % (37.0-53.0); Hemoglobin 13.1 g/dL (13.5-17.5); IMMATURE GRAN ABSOLUTE AUTO 0.04 K/mm3 (0.00-0.10); IMMATURE GRAN PERCENT AUTO 1 % (0-1); LYMPHOCYTES ABSOLUTE AUTO 1.39 K/mm3 (0.84-5.20); LYMPHOCYTES PERCENT AUTO 16 % (21-46); MONOCYTES ABSOLUTE AUTO 0.74 K/mm3 (0.16-1.47); MONOCYTES PERCENT AUTO 9 % (4-13); Mean Corpuscular HGB Conc 33.0 g/dL (31.5-36.5); Mean Corpuscular Volume 89 fL (80-100); NEUTROPHILS ABSOLUTE AUTO 6.24 K/mm3 (1.96-9.15); NEUTROPHILS PERCENT AUTO 72 % (41-73); NRBC ABSOLUTE 0.00 K/mm3 (0.00-0.02); NRBC Auto 0.0 /100 WBC (0.0-0.2); Platelet Count 264 K/mm3 (150-400); RDW Coefficient Variation 14.1 % (11.7-14.2); RDW Standard Deviation 45.1 fL (35.1-46.3)
[2025-03-27 04:18] VITALS: BP 129/91
[2025-03-27 04:47] LABS: Anion Gap 7.0 mmol/L (3-11); Blood Urea Nitrogen 7.0 mg/dL (8-24); CO2, Blood 30.0 mmol/L (21-32); Calcium, Blood 8.7 mg/dL (8.5-10.1); Chloride, Blood 101.0 mmol/L (98-108); Creatinine, Blood 0.61 mg/dL (0.60-1.20); Glucose, Blood 107.0 mg/dL (70-99); Magnesium, Blood 1.7 mg/dL (1.6-2.4); Potassium, Blood 3.4 mmol/L (3.5-5.5); Sodium, Blood 135.0 mmol/L (136-145)
--- NOTE | 2025-03-27 04:59 | NUR ---
SHIFT SUMMARY NO ACUTE EVENTS OVERNIGHT. PAIN CONTROL WITH PO AND IV PAIN MEDICATIONS. PT OSTOMY WITH SMALL AMOUNT OF BROWN LIQUID. LAP SITES CDI. PT AMBULATING IN ROOM FOR RESTROOM USE. PT TOLERATING ICE CHIPS.
--- NOTE | 2025-03-27 06:22 | NUR ---
PT AMBULATING IN HALLS AND REPORTS FEELING LESS PAIN. PT BACK TO ROOM WITH NO NEEDS REPORTED.
[2025-03-27 07:29] VITALS: BP 132/92
[2025-03-27 15:43] VITALS: BP 128/98
--- NOTE | 2025-03-27 16:03 | NUR ---
SHIFT SUMMARY NO ACUTE CHANGES THIS SHIFT. POD COLECTOMY & OSTOMY PLACEMENT. A&O x4, VSS. LAP SITES x4 w/MIDLINE, C/D/I. MILD ABD DISTENTION & TENDERNESS. MINIMAL BROWN LIQUID OSTOMY OUTPUT, NO GAS. TOLERATING CLEAR LIQUID DIET WELL, ADVANCED TO FULL THIS EVENING. INDEPENDENT IN ROOM, AMBULATED IN HALLWAY SEVERAL TIMES TODAY. PAIN CONTROLLED WELL PER EMAR. CURRENTLY RESTING IN BED w/CALL LIGHT WITHIN REACH.
[2025-03-27 19:57] VITALS: BP 138/92
[2025-03-28 03:46] VITALS: BP 121/83
[2025-03-28 07:17] VITALS: BP 127/90
[2025-03-28 16:18] VITALS: BP 122/82
--- NOTE | 2025-03-28 17:13 | NUR ---
SHIFT SUMMARY NO ACUTE CHANGES THIS SHIFT. POD 4 COLECTOMY & OSTOMY PLACEMENT. A&O x4, VSS. PAIN CONTROLLED WELL PER EMAR. LAP SITES x4 w/MIDLINE, C/D/I. INDEPENDENT IN ROOM, AMBULATED SEVERAL TIMES IN ROOM TODAY. EDUCATED REGARDING OSTOMY CARE THIS AFTERNOON, PT STATES UNDERSTANDING & PLANS TO EMPTY OSTOMY INDEPENDENTLY. x2 EPISODES OF NAUSEA TODAY, TOLERATING FULL LIQUID DIET, ENCOURAGED TO TAKE SMALL BITES AT A TIME. CURRENTLY RESTING IN BED w/CALL LIGHT WITHIN REACH.
[2025-03-28 19:50] VITALS: BP 135/90
[2025-03-28] MEDS ORDERED: Ondansetron HCl 2 MG / ML 2ML Vial IV PRN (21:45)
--- NOTE | 2025-03-29 02:13 | NUR ---
SHIFT ASSESSMENT COMPLETED @ 1930 NOT 1730.
[2025-03-29 03:39] VITALS: BP 119/86
[2025-03-29 04:09] LABS: Albumin, Blood 2.8 g/dL (3.4-5.0); Anion Gap 7 mmol/L (3-11); Blood Urea Nitrogen 8 mg/dL (8-24); CO2, Blood 34 mmol/L (21-32); Calcium, Blood 8.9 mg/dL (8.5-10.1); Chloride, Blood 98 mmol/L (98-108); Creatinine, Blood 0.62 mg/dL (0.60-1.20); Glucose, Blood 106 mg/dL (70-99); Phosphorus, Blood 3.7 mg/dL (2.5-4.9); Potassium, Blood 3.5 mmol/L (3.5-5.5); Sodium, Blood 135 mmol/L (136-145)
--- NOTE | 2025-03-29 05:47 | NUR ---
SHIFT SUMMARY POD 5 SIGMOID COLECTOMY W/ OSTOMY PLACEMENT. LAP SITES X3 AND MIDLINE INCISION C/D/I WITH MILD REDNESS NOTED RIGHT OF MIDLINE INCISION AND PROXIMAL OF OSTOMY DEVICE. PT A&O X4. VSS. PT C/O INCREASED NAUSEA W/ 1 EPISODE OF VOMITING THIS SHIFT. TC TO ONCALL PHYSICIAN, ORDERS RECEIVED FOR MEDICATION FREQUENCY CHANGE. MEDICATED PER EMAR WITH PT REPORTING RELEIF OF N&V. PAIN MANAGED WELL PER EMAR. PT EMPTYING OSTOMY INDEPENDENTLY. CARE PLAN ONGOING. CALL LIGHT WITHIN REACH.
[2025-03-29 07:16] VITALS: BP 127/87
[2025-03-29] MEDS ORDERED: Ondansetron 4 MG SoluTab MM PRN (12:20)
[2025-03-29 14:49] VITALS: BP 127/90
--- NOTE | 2025-03-29 16:49 | NUR ---
SUMMARY PT POD 5 ELECTIVE SIGMOID COLECTOMY W/ILEOSTOMY. PT HAS HAD PAIN AND NAUSEA OFF AND ON T/O SHIFT. TOLERATING SIPS OF WATER. ILEOSTOMY PUTTING OUT UNFORMED GREENISH BROWN STOOL. PT IS EMPTYING INDEPENDENTLY. GOAL PER DR RM IS TO HAVE LESS THAN 1L STOOL OUTPUT DAILY PRIOR TO DC. PT REC'D 1L FLUID BOLUS PER ORDERS THIS SHIFT. AMBULATED IN NAQVI INDEPENDENTLY. PT PLEASANT AND COOPERATIVE. CALL LIGHT IN REACH.
[2025-03-29 21:01] VITALS: BP 141/96
[2025-03-30 04:21] VITALS: BP 114/85
[2025-03-30 05:05] LABS: Anion Gap 8.0 mmol/L (3-11); Blood Urea Nitrogen 10.0 mg/dL (8-24); CO2, Blood 32.0 mmol/L (21-32); Calcium, Blood 9.3 mg/dL (8.5-10.1); Chloride, Blood 95.0 mmol/L (98-108); Creatinine, Blood 0.59 mg/dL (0.60-1.20); Glucose, Blood 127.0 mg/dL (70-99); Potassium, Blood 3.3 mmol/L (3.5-5.5); Sodium, Blood 132.0 mmol/L (136-145)
--- NOTE | 2025-03-30 05:25 | NUR ---
SHIFT SUMMARY NO ACUTE CHANGES TONIGHT. S/P COLOSTOMY, OSTOMY APPLIANCE CDI. STOMA RED IN COLOR AND PRODUCING BROWN LIQUID STOOL. PT ABLE AND WILLING TO CARE FOR OWN OSTOMY, EAGER TO LEARN. PAIN MANAGED PER EMAR, MEDICATED X 1 FOR NAUSEA. FLAKO PO, REPORTS DECREASED APPETITE. WALKING HALLWAYS IND. IV PATENT/SL. PT RESTING IN BED WITH CALL LIGHT IN REACH. WILL GIVE REPORT TO ONCOMING RN.
[2025-03-30] MEDS ORDERED: HYDROcodone 5-APAP 325 TAB PO PRN (07:15)
[2025-03-30] MEDS ORDERED: NS 1,000 ML IV ONE (07:15)
[2025-03-30 07:22] VITALS: BP 129/88
[2025-03-30] MEDS ORDERED: HYDROmorphone HCl/Pf 1MG SYR IV PRN (14:00)
[2025-03-30 16:02] VITALS: BP 124/86
--- NOTE | 2025-03-30 16:59 | NUR ---
SUMMARY PT STARTED ON NORCO TODAY PER ORDERS. BEFORE NORCO WAS AVAILABLE AGAIN, PT HAD INCREASED PAIN. WHILE GETTING IN TOUCH WITH DR RM, PT STATED INCREASED PAIN CAUSED NAUSEA AND VOMITING. OBTAINED ORDER FOR IV DILAUDID WHICH BROUGHT PT ADEQUATE PAIN RELIEF; AFTER DILAUDID AND ZOFRAN PT WAS ABLE TO SLEEP THIS AFTERNOON. PT EMPTYING OWN OSTOMY AND RECORDING AMOUNT ON BOARD FOR STAFF. RESTING IN BED WITH LIGHTS OF AT THIS TIME, REPORTING FEELING "WORN OUT". CALL LIGHT IN REACH.
[2025-03-30 19:49] VITALS: BP 119/83
[2025-03-31 04:15] VITALS: BP 124/89
[2025-03-31 04:37] LABS: BASOPHILS ABSOLUTE AUTO 0.02 K/mm3 (0.00-0.23); BASOPHILS PERCENT AUTO 1 % (0-2); EOSINOPHILS ABSOLUTE AUTO 0.10 K/mm3 (0.00-0.68); EOSINOPHILS PERCENT AUTO 2 % (0-6); Hematocrit 36.6 % (37.0-53.0); Hemoglobin 12.1 g/dL (13.5-17.5); IMMATURE GRAN ABSOLUTE AUTO 0.01 K/mm3 (0.00-0.10); IMMATURE GRAN PERCENT AUTO 0 % (0-1); LYMPHOCYTES ABSOLUTE AUTO 0.99 K/mm3 (0.84-5.20); LYMPHOCYTES PERCENT AUTO 24 % (21-46); MONOCYTES ABSOLUTE AUTO 0.58 K/mm3 (0.16-1.47); MONOCYTES PERCENT AUTO 14 % (4-13); Mean Corpuscular HGB Conc 33.1 g/dL (31.5-36.5); Mean Corpuscular Volume 89 fL (80-100); NEUTROPHILS ABSOLUTE AUTO 2.52 K/mm3 (1.96-9.15); NEUTROPHILS PERCENT AUTO 60 % (41-73); NRBC ABSOLUTE 0.00 K/mm3 (0.00-0.02); NRBC Auto 0.0 /100 WBC (0.0-0.2); Platelet Count 268 K/mm3 (150-400); RDW Coefficient Variation 14.3 % (11.7-14.2); RDW Standard Deviation 46.1 fL (35.1-46.3)
--- NOTE | 2025-03-31 04:38 | NUR ---
SHIFT SUMMARY NO ACUTE CHANGES DURING NIGHT. PAIN MANAGED WITH PO MEDICATIONS. MEDICATED X 2 FOR NAUSEA. OSTOMY APPLIANCE CDI, STOMA RED IN COLOR AND PRODUCING LIQUID STOOLS. PT REPORTS DECREASED IN OUTPUT THIS EVENING. PT ABLE AND WILLING TO CARE FOR OSTOMY. IS A/OX4 WITH VSS. ABD INCISION CDI, NO DRAINAGE NOTED. IV PATENT AND SL. PT CURRENTLY RESTING IN BED WITH CALL LIGHT IN REACH. WILL GIVE REPORT TO ONCOMING RN.
[2025-03-31 05:24] LABS: Anion Gap 8.0 mmol/L (3-11); Blood Urea Nitrogen 8.0 mg/dL (8-24); CO2, Blood 32.0 mmol/L (21-32); Calcium, Blood 9.0 mg/dL (8.5-10.1); Chloride, Blood 97.0 mmol/L (98-108); Creatinine, Blood 0.53 mg/dL (0.60-1.20); Glucose, Blood 92.0 mg/dL (70-99); Magnesium, Blood 1.6 mg/dL (1.6-2.4); Potassium, Blood 3.4 mmol/L (3.5-5.5); Sodium, Blood 134.0 mmol/L (136-145)
[2025-03-31] MEDS ORDERED: Ketorolac Tromethamine 15mg Vial IV PRN (06:45)
[2025-03-31 07:27] VITALS: BP 127/92
--- NOTE | 2025-03-31 09:19 | NUR ---
THIS MUSEUM TECHNICIAN OFFERED PATIENT SHOWER/BATH AND BEDDING CHANGE.PATIENT REQUEST TO SLEEP AT THIS TIME.PATIENT STATED" I WILL CALL WHEN READY FOR SHOWER."
[2025-03-31] MEDS ORDERED: Prochlorperazine Edisylate 10 mg Vial IV PRN (13:55)
[2025-03-31 14:05] VITALS: BP 147/79
--- NOTE | 2025-03-31 14:07 | NUR ---
UPDATE PATIENT IS HAVING NAUSEA AND VOMITTING THIS AFTERNOON. BRIGHT GREEN IN COLOR. MORE NAUSEATED WITH AMBULATION/MOVEMENT.CALL TO DR. RM MADE AND ORDER FOR COMPAZINE, AND CT SCAN W/ CONTRAST PLACED.
[2025-03-31] MEDS ORDERED: Magnesium Sul 4 GM/Water100 ML 100 ML IV ONE (14:10)
--- NOTE | 2025-03-31 14:58 | NUR ---
REPORT TO LEE RN TO ASSUME CARE. PATIENT WENT TO CT SCAN, DR. RM IN TO ASSESS. PATIENT IS TOLERATING SOME SIPS OF WATER. NAUSEA HAS SUBSIDED WITH COMPAZINE. ORDER FOR MAG SULFATE. PATIENT RESTING AT THIS TIME. DENIES PAIN, VSS. CALL LIGHT IN REACH.
--- NOTE | 2025-03-31 17:31 | NUR ---
NO ACUTE CHANGES. SEE PREVIOUS NOTES. PT RESTING COMFORTABLY WITH NO QUESTIONS OR CONCERNS. NAUSEA CONTROLLED WITH COMPAZINE.
[2025-03-31 20:39] VITALS: BP 121/85
[2025-04-01 04:11] VITALS: BP 142/91
[2025-04-01 05:10] LABS: Anion Gap 9.0 mmol/L (3-11); Blood Urea Nitrogen 11.0 mg/dL (8-24); CO2, Blood 34.0 mmol/L (21-32); Calcium, Blood 8.9 mg/dL (8.5-10.1); Chloride, Blood 91.0 mmol/L (98-108); Creatinine, Blood 0.65 mg/dL (0.60-1.20); Glucose, Blood 95.0 mg/dL (70-99); Magnesium, Blood 2.1 mg/dL (1.6-2.4); Potassium, Blood 3.7 mmol/L (3.5-5.5); Sodium, Blood 130.0 mmol/L (136-145)
--- NOTE | 2025-04-01 05:43 | NUR ---
SHIFT SUMMARY AOX4. POD 8-COLECTOMY W/ILEOSTOMY. LAP SITES C/D/I, NO DRAINAGE NOTED. MIDLINE INCISION W/VARIOUS STAGES BRUISING HEALING. BLACK MARKER OUTLINE ABOVE OSTOMY WITH SMALL AMOUNT REDNESS WHICH HAS RECCEDED WITHIN OUTLINE. THIS AM PT BROUGHT TO MY ATTENTION HARD "KNOTS" AROUND MIDLINE INCISION, INFORMED PT I WOULD PASS TO ONCOMING DAY NURSE, SINCE IM UNSURE IF ITS R/T HEALING BRUISING OR IF ITS NEW. HAD 2 EPISODES EMESIS 1 LRG UNMEASURED & 1X W/600ML GREEN OUTPUT. MEDICATED 2x W/5MG COMPAZINE, 1x W/ZOFRAN. PT DENIES ANY FLATUS OUT OSTOMY, STATES HE WAS PASSING GAS THE PREVIOUS DAY BUT NONE ALL DAY 03/31 OR THIS SHIFT. REPORTS INCREASED BELCHING & HEARTBURN FEELING WHICH TRIGGERS NAUSEA/EMESIS-MEDICATED 1x W/MAALOX & PT STATES THATS THE LONGEST HE WENT W/O N/V. HYPERACTIVE BT RLQ, TYMPANIC BT MID ABD. REPORTS 7/10 PAIN, MEDICATED 2x W/1MG DILAUDID & 1x W/TORADOL, PT REFUSED TO TAKE PO PAIN MEDS R/T FREQUENT N/V AT THIS TIME. PT DIAPHORETIC, AFEBRIBLE-VSS. CALL LIGHT IN REACH & PT ABLE TO MAKE NEEDS KNOWN.
[2025-04-01 07:24] VITALS: BP 126/89
[2025-04-01] MEDS ORDERED: NS 1,000 ML IV ONE (13:00)
--- NOTE | 2025-04-01 15:51 | NUR ---
SHIFT SUMMARY POD 8 ELECTIVE COLECTOMY & OSTOMY PLACEMENT. NO ACUTE CHANGES THIS SHIFT. LAP SITES x4 w/MIDLINE, NO DRAINAGE. A&O x4, VSS, HRR, LUNGS CLEAR. TENDERNESS NOTES ON ABD PALPATION. PAIN CONTROLLED WELL PER EMAR. TOLERATING DIET, ENCOURAGED SLOW EATING. x3 EPISODES OF N/V TODAY, MEEDICATED PER EMAR, STATES RELIEF FOLLOWING ADMINISTRATION. IND IN ROOM, EMPTIES OSTOMY INDEPENDENTLY. CURRENTLY RESTING IN BED w/CALL LIGHT WITHIN REACH.
[2025-04-01 17:07] VITALS: BP 133/83
[2025-04-02 02:20] VITALS: BP 127/94
--- NOTE | 2025-04-02 05:11 | NUR ---
SHIFT SUMMARY POD 9-COLECTOMY W/ILEOSTOMY. LAP SITES & MIDLINE INCISION, C/D/I. REPORTS PASSING FLATUS OUT OSTOMY & RECTUM TONIGHT. HAD 830ML LIQUID DRK GREEN STOOL OUT OSTOMY. ACTIVE BT. DENIES BLOATING. HAD 1 GREEN UNMEASURED & 200ML EMESIS THIS SHIFT. MEDICATED W/ZOFRAN & COMPAZINE & PT STATES RELIEF. TOLERATING LIQUIDS. REPORTS 10 ABD PAIN, WORSE AFTER RETCHING, STATES PAIN RELIEF AFTER TORADOL & PO NORCO. CALL LIGHT IN REACH & PT ABLE TO MAKE NEEDS KNOWN.
[2025-04-02 07:53] VITALS: BP 127/90
--- NOTE | 2025-04-02 15:10 | NUR ---
SHIFT SUMMARY POD 9 ELECTIVE COLECTOMY & ILEOSTOMY PLACEMENT. A&O x4, VSS. TRANSITIONED FROM REGULAR TO FULL LIQUID DIET DUE TO CONSISTANT N/V. IVF INFUSING PER EMAR, MD DEJESUS AWARE x3 EPISODES OF N/V TODAY, MEDICATED PER EMAR. LAP SITES x4 w/MIDLINE DRESSING, NO NEW DRAINAGE. RLQ OSTOMY w/MODERATE AMOUNT OF LIQUID GREENISH OUTPUT. PAIN CONTROLLED WELL PER EMAR. IND IN ROOM. ENCOURAGED AMBULATION TODAY. CURRENTLY RESTING IN BED wCALL LIGHT WITHIN REACH.
[2025-04-02 16:39] VITALS: BP 114/78
[2025-04-02 19:32] VITALS: BP 102/71
--- NOTE | 2025-04-02 22:04 | NUR ---
2044- PT FOUND WITH ELEVATED PULSE RATE. PT FOUND TO HAVE N/V AND ABD PAIN. PT TX PEREMAR W/ RELIEF. PULSE RATE IMPROVED TO 90'S.
--- NOTE | 2025-04-03 04:28 | NUR ---
NOC SUMMARY- PT HAD ELEVATED PULSE RATE AT BEGINNING OF SHIFT. PT WAS ACTIVELY VOMITING AND WAS PAINFUL. PT TREATED PER AUG WITH RELIEF. PT HAS REDUCED PO INTAKE TO ICE CHIPS ONLY. PT OSTOMY PRODUCING BROWN LIQUID STOOL. PT VOIDING WELL. PT HAS BEEN ABLE TO REST COMFORTABLY. OSTOMY APPLIANCE CHANGED DUE TO LEAKING. CALL LIGHT IN REACH.
[2025-04-03 05:13] VITALS: BP 106/83
[2025-04-03 06:00] LABS: Hematocrit 43.9 % (37.0-53.0); Hemoglobin 14.5 g/dL (13.5-17.5); Mean Corpuscular HGB Conc 33.0 g/dL (31.5-36.5); Mean Corpuscular Volume 87 fL (80-100); NRBC ABSOLUTE 0.00 K/mm3 (0.00-0.02); NRBC Auto 0.0 /100 WBC (0.0-0.2); Platelet Count 465 K/mm3 (150-400); RDW Coefficient Variation 14.6 % (11.7-14.2); RDW Standard Deviation 46.4 fL (35.1-46.3)
[2025-04-03 06:15] LABS: Alanine Aminotransfer (ALT/SGP 75.0 U/L (12-78); Albumin, Blood 3.5 g/dL (3.4-5.0); Albumin/Globulin Ratio 0.8 (0.8-1.8); Anion Gap 11.0 mmol/L (3-11); Aspartate Aminotrans (AST/SGOT 27.0 U/L (12-37); Bilirubin, Total 0.9 mg/dL (0.1-1.0); Blood Urea Nitrogen 26.0 mg/dL (8-24); CO2, Blood 43.0 mmol/L (21-32); Calcium, Blood 9.9 mg/dL (8.5-10.1); Chloride, Blood 75.0 mmol/L (98-108); Creatinine, Blood 2.11 mg/dL (0.60-1.20); Globulin, Blood 4.4 g/dL (2.2-4.0); Glucose, Blood 136.0 mg/dL (70-99); Potassium, Blood 3.3 mmol/L (3.5-5.5); Sodium, Blood 126.0 mmol/L (136-145); Total Protein, Blood 7.9 g/dL (6.4-8.2)
[2025-04-03 06:22] LABS: BAND PERCENT MAN 21 % (0-8); BASOPHILS ABSOLUTE MAN 0.00 K/mm3 (0.00-0.23); BASOPHILS PERCENT MAN 0 % (0-2); EOSINOPHILS ABSOLUTE MAN 0.22 K/mm3 (0.00-0.68); EOSINOPHILS PERCENT MAN 2 % (0-6); LYMPHOCYTES ABSOLUTE MAN 1.76 K/mm3 (0.84-5.20); LYMPHOCYTES PERCENT MAN 16 % (21-46); MONOCYTES ABSOLUTE MAN 1.10 K/mm3 (0.16-1.47); MONOCYTES PERCENT MAN 10 % (4-13); NEUTROPHILS ABSOLUTE MAN 7.92 K/mm3 (1.96-9.15); SEG NEUTROPHILS PERCENT MAN 51 % (41-73)
[2025-04-03 07:09] VITALS: BP 105/73
[2025-04-03] MEDS ORDERED: NS 1,000 ML IV ONE ×3 (07:35→14:45)
[2025-04-03] MEDS ORDERED: HYDROcodone 5-APAP 325 TAB PO PRN (07:40)
[2025-04-03] MEDS ORDERED: Banana Flakes/Tos 1 EA Powder Pack PO SCH (09:00)
--- NOTE | 2025-04-03 13:34 | NUR ---
DR RM IN TO SEE PT.
[2025-04-03 14:23] LABS: Anion Gap 10.0 mmol/L (3-11); Blood Urea Nitrogen 28.0 mg/dL (8-24); CO2, Blood 40.0 mmol/L (21-32); Calcium, Blood 8.7 mg/dL (8.5-10.1); Chloride, Blood 81.0 mmol/L (98-108); Creatinine, Blood 1.75 mg/dL (0.60-1.20); Glucose, Blood 106.0 mg/dL (70-99); Potassium, Blood 3.2 mmol/L (3.5-5.5); Sodium, Blood 128.0 mmol/L (136-145)
[2025-04-03 14:55] VITALS: BP 116/75
--- NOTE | 2025-04-03 15:32 | NUR ---
SHIFT SUMMARY PT IS A/OX4. TOLERATING SIPS AND CHIPS. PT HAD ONE EPISODE OF N/V THIS SHIFT. MANAGED PER EMAR. PT IS PASSING FLATUS, MINIMAL OSTOMY OUTPUT T/O SHIFT, MD AWARE. PT IS IND AMBULATING THE HALLS. VSS. CALL LIGHT IN REACH, BED IN LOWEST POSITION, ABLE TO MAKE NEEDS KNOWN.
--- NOTE | 2025-04-03 18:13 | NUR ---
NO ACUTE CHANGES, WILL REPORT TO ONCOMING RN
[2025-04-03 19:44] VITALS: BP 106/72
[2025-04-04 04:07] VITALS: BP 114/76
--- NOTE | 2025-04-04 04:55 | NUR ---
NOC SUMMARY- PT HAD BETTER SHIFT. PT HAD SOME NAUSEA BUT NO VOMITING OR RETCHING. LESLY MANAGED WELL. PT HAS BEEN ABLE TO REST COMFORTABLY. PT OSTOMY HAS SCANT LIQUID STOOL. DRESSINGS OPEN TO AIR. PT AMBULATORY. NO NEW ISSUES.
[2025-04-04 06:23] LABS: Albumin, Blood 2.5 g/dL (3.4-5.0); Anion Gap 9 mmol/L (3-11); Blood Urea Nitrogen 21 mg/dL (8-24); CO2, Blood 35 mmol/L (21-32); Calcium, Blood 8.2 mg/dL (8.5-10.1); Chloride, Blood 89 mmol/L (98-108); Creatinine, Blood 1.00 mg/dL (0.60-1.20); Glucose, Blood 77 mg/dL (70-99); Phosphorus, Blood 2.5 mg/dL (2.5-4.9); Potassium, Blood 3.2 mmol/L (3.5-5.5); Sodium, Blood 130 mmol/L (136-145)
[2025-04-04] MEDS ORDERED: NS 1,000 ML IV ONE (07:05)
[2025-04-04] MEDS ORDERED: D5W-1/2NS KCl 20mEq 1,000 ML IV SCH (07:05)
[2025-04-04 07:37] VITALS: BP 113/73
[2025-04-04] MEDS ORDERED: NS 500 ML IV SCH (07:50)
--- NOTE | 2025-04-04 10:57 | NUR ---
DR RM IN TO SEE PT PLAN FOR CT.
--- NOTE | 2025-04-04 14:05 | NUR ---
PT BACK FROM CT.
[2025-04-04 14:37] VITALS: BP 109/79
--- NOTE | 2025-04-04 15:42 | NUR ---
PT PROVIDED WITH JELLO AND ICEWATER. ADVISED TO TAKE SLOWLY.
--- NOTE | 2025-04-04 18:07 | NUR ---
SUMMARY PT HAD CT THIS SHIFT. PT ADVANCED FROM CHIPS TO CLEAR LIQUIDS. REPORTED TOLERATED DINNER WELL. INDEPENDENT IN ROOM. STATED EMPTIED ILEOSTOMY OF 200 ML DARK GREEN FLUID. PASSED SOME BRIGHT RED BLOOD RECTALLY, DR RM NOTIFIED. NO NEW ORDERS. CALL LIGHT IN REACH.
[2025-04-04 19:08] VITALS: BP 116/79
[2025-04-05 03:55] VITALS: BP 121/83
[2025-04-05 04:00] LABS: Albumin, Blood 2.6 g/dL (3.4-5.0); Anion Gap 6 mmol/L (3-11); Blood Urea Nitrogen 9 mg/dL (8-24); CO2, Blood 36 mmol/L (21-32); Calcium, Blood 8.4 mg/dL (8.5-10.1); Chloride, Blood 93 mmol/L (98-108); Creatinine, Blood 0.75 mg/dL (0.60-1.20); Glucose, Blood 120 mg/dL (70-99); Phosphorus, Blood 2.4 mg/dL (2.5-4.9); Potassium, Blood 3.5 mmol/L (3.5-5.5); Sodium, Blood 131 mmol/L (136-145)
--- NOTE | 2025-04-05 05:58 | NUR ---
SHIFT SUMMARY POD 12 ELECTIVE COLECTOMY W/ILEOSTOMY PLACEMENT. A&O X4. VSS. LAP SITES X4 AND MIDLINE INCISION C/D/I. PT HAD NAUSEA WITH EMESIS X1 THIS SHIFT. MEDICATED PER EMAR WITH PT REPORTING RELIEF OF SYMPTOMS. PAIN MANAGED WELL PER EMAR. PT RESTING IN BED, RESPIRATIONS EVEN AND UNLABORED. CALL LIGHT WITHIN REACH.
[2025-04-05 08:04] VITALS: BP 126/82
[2025-04-05 14:19] VITALS: BP 114/83
[2025-04-05 19:24] VITALS: BP 122/82
--- NOTE | 2025-04-05 19:37 | NUR ---
SHIFT SUMMARY POD12 COLECTOMY, A/OX4, VSS, TOLERATING DIET, 1 SMALL BM, FULL LIQUID DIET FOR LUNCH AND DINNER, PT REQUESTED REGULAR FOR BREAKFAST. DISCUSSED ADVANCING DIET WITH POSSIBLE DC IN THE NEXT FEW DAYS IF ALL GOES WELL.
[2025-04-06 04:55] VITALS: BP 107/82
--- NOTE | 2025-04-06 06:21 | NUR ---
SHIFT SUMMARY NOC. PT A/O X4, INCISIONS C/D/I. PT MEDICATED FOR PAIN AND NAUSEA THIS SHIFT. PT VOIDING URINE AND TOLERATING PO INTAKE WITHOUT EMESIS. PT INDEPENDENT WITH OSTOMY EMPTYING AND PRODUCED LIQUID BM THIS SHIFT. PT MAKES NEEDS KNOWN, CALL LIGHT IN REACH.
[2025-04-06 07:32] VITALS: BP 110/81
[2025-04-06 07:45] LABS: Anion Gap 8.0 mmol/L (3-11); Blood Urea Nitrogen 6.0 mg/dL (8-24); CO2, Blood 31.0 mmol/L (21-32); Calcium, Blood 8.5 mg/dL (8.5-10.1); Chloride, Blood 96.0 mmol/L (98-108); Creatinine, Blood 0.65 mg/dL (0.60-1.20); Glucose, Blood 117.0 mg/dL (70-99); Potassium, Blood 4.0 mmol/L (3.5-5.5); Sodium, Blood 131.0 mmol/L (136-145)
[2025-04-06 12:16] VITALS: BP 119/87
[2025-04-06 15:53] VITALS: BP 116/78
--- NOTE | 2025-04-06 19:56 | NUR ---
SHIFT SUMMARY POD13 COLECTOMY WITH NEW OSTOMY, A/OX4, VSS, TOLERATING PO, PAIN MANAGED PER EMAR, SALINE LOCKED HIS IV, TOLERATING PO LOW FIBER DIET. SOME NAUSEA BUT NO VOMITING AND HE REPORTS RELIEF WITH ANTI EMETICS. NO ACUTE EVENTS, CALL LIGHT IN RECH.
[2025-04-06 20:23] VITALS: BP 106/82
[2025-04-06] MEDS ORDERED: HYDROmorphone HCl/Pf 1MG SYR IV PRN (20:55)
[2025-04-07 04:57] VITALS: BP 129/84
[2025-04-07 04:59] LABS: Albumin, Blood 2.7 g/dL (3.4-5.0); Anion Gap 8 mmol/L (3-11); Blood Urea Nitrogen 10 mg/dL (8-24); CO2, Blood 33 mmol/L (21-32); Calcium, Blood 8.8 mg/dL (8.5-10.1); Chloride, Blood 97 mmol/L (98-108); Creatinine, Blood 0.75 mg/dL (0.60-1.20); Glucose, Blood 127 mg/dL (70-99); Phosphorus, Blood 3.1 mg/dL (2.5-4.9); Potassium, Blood 4.4 mmol/L (3.5-5.5); Sodium, Blood 134 mmol/L (136-145)
--- NOTE | 2025-04-07 06:05 | NUR ---
SHIFT SUMMARY NOC. PT S/P COLECTOMY, PT A/O X4 INDEPENDENT IN THE ROOM AND WITH OSTOMY EMPTYING. MIDLINE INCISION AND LAP SITES X4 ELECTROCARDIOGRAPHIC TECHNICIAN & C/D/I. PT MEDICATED FOR PAIN WITH ORAL NORCO APPROX [id number], PT MEDICATED WITH ZOFRAN FOR NAUSEA. PT TOLERATING DIET AND HAD NO REPORTED EMESIS THIS SHIFT. OSTOMY IS PRODUCING LIQUID OUTPUT AND PT ENCOURAGED TO TAKE IMMODIUM PRESCRIBED, PT TOOK MED. PT MAKES NEEDS KNOWN, CALL LIGHT IN REACH.
[2025-04-07 08:07] VITALS: BP 123/96
[2025-04-07] MEDS ORDERED: BANATROL PLUS1 EAC1 PO (11:32)
[2025-04-07] MEDS ORDERED: LOPERAMIDE PO (11:32)
[2025-04-07] MEDS ORDERED: ONDA4ODT MM (11:33)
[2025-04-07] MEDS ORDERED: METAMUCIL MULT660 G2 PO (11:34)
--- NOTE | 2025-04-07 13:52 | NUR ---
DISCHARGE POD 14 COLECTOMY WITH ILEOSTOMY. PT HAVING SOFT STOOL FROM STOMA, PINK AND BEEFY, PASSING FLATUS. PT EMPTYING AND BURPING OWN OSTOMY. EDUCATION PROVIDED TO PATIENT AND SPOUSE ABOTU CHANGING APPLIANCE. NEW APPLIANCE PLACED PRIOR TO DISCHARGE. TOLERATING MINIMAL DIET, SLIGHT NAUSEA, RELIEVED PER EMAR. PAIN CONTROLLED WELL PER EMAR. ALL QUESTIONS ANSWERED, ALL BELONGINGS WITH PATIENT. ESCORTED OUT VIA WHEELCHAIR.
== END 2025-04-07 13:39 | disposition home health service (06) | DRG 330 ==
LOC: SURS 11:29
PROVIDERS: Surgery; ADMIT Surgery
PROC: 0D1B4Z4 Bypass Ileum to Cutaneous, Percutaneous Endoscopic Approach (ICD-10-PCS; 2025-03-24)
PROC: 8E0W4CZ Robotic Assisted Procedure of Trunk Region, Percutaneous Endoscopic Approach (ICD-10-PCS; 2025-03-24)
PROC: 3E03329 Introduction of Other Anti-infective into Peripheral Vein, Percutaneous Approach (ICD-10-PCS; 2025-03-24)
PROC: 0DTN4ZZ Resection of Sigmoid Colon, Percutaneous Endoscopic Approach (ICD-10-PCS; principal; 2025-03-24 17:30)
DX: K57.20 Diverticulitis of large intestine with perforation and abscess without bleeding (principal); E87.1 Hypo-osmolality and hyponatremia; N17.9 Acute kidney failure, unspecified; K63.2 Fistula of intestine; K91.30 Postprocedural intestinal obstruction, unspecified as to partial versus complete; E87.8 Other disorders of electrolyte and fluid balance, not elsewhere classified; E87.6 Hypokalemia; K52.89 Other specified noninfective gastroenteritis and colitis
CPT/HCPCS: 36415; 74177; 80048; 80053; 80069; 83735; 84100; 85025; 85027; 88307; 94760; 94762; A9270; J0690; J0780; J1100; J1171; J1644; J1650; J1885; J2250; J2405; J2704; J2765; J3010; J3475; J3480; J7030; J7040; J7050; J7120; Q9967